=== PATIENT | female | born 1990 | race African-American/Black ===

== ENCOUNTER 2024-12-05 20:03 | Emergency (ER) | payer OTHER ==
[~2024-12-05] VITALS: Ht 175.3 cm; Wt 131.0 kg
[2024-12-05 20:08] VITALS: O2SAT 98
[2024-12-05] MEDS: ACETAMINOPHEN 325MG TABLET PO ONE (23:19)
[2024-12-05 23:23] VITALS: BP 166/93; PULSE 94; RESP 18; TEMP 36.9; O2SAT 99
== END 2024-12-05 23:29 | disposition home or self-care (01) ==
LOC: ER 20:03
DX: S92.351A Displaced fracture of fifth metatarsal bone, right foot, initial encounter for closed fracture (principal); W19.XXXA Unspecified fall, initial encounter; Y93.89 Activity, other specified; Y92.89 Other specified places as the place of occurrence of the external cause; Y99.8 Other external cause status
CPT/HCPCS: 73610; 73630; 29515; 99284; Z7610